=== PATIENT | male | born 1990 | race Caucasian/White ===

== ENCOUNTER 2022-09-21 18:35 | Emergency (ER) | payer SELFPAY ==
[2022-09-21 18:58] LABS: Absolute Lymphocytes (CBC) 1.5 K/uL (0.7-4.9); Hematocrit 44.5 % (39.6-49.0); Lymphocytes % 14.9 % (15.3-44.8); MCV 88.8 fL (80-100); MPV 8.1 fL (7.6-11.3); RBC Red Blood Cell Count 5.02 M/uL (4.33-5.43)
[2022-09-21 19:02] LABS: Protime INR 1.05
[2022-09-21] MEDS ORDERED: ZIPRASIDONE MESYLA 20 MG/VIAL IM ONE (19:04)
[2022-09-21] MEDS ORDERED: WATER FOR INJ,STERILE 10 ML ONE (19:06)
[2022-09-21 19:11] LABS: Specific Gravity < 1.005 (1.005-1.030); Urine Bilirubin NEGATIVE (Negative); Urine Blood Negative (Negative); Urine Clarity Clear (Clear); Urine Color Colorless (Yellow); Urine Glucose NEGATIVE (Negative); Urine Protein NEGATIVE (Negative); Urine Urobilinogen Normal (Normal); Urine pH 5.5 (5.0-7.0)
[2022-09-21] MEDS ORDERED: NICOTINE 21 MG/PAT TD ONE (19:19)
[2022-09-21 19:20] LABS: ALT/SGPT 20 U/L (16-61); AST/SGOT 18 U/L (15-37); Albumin 4.4 g/dL (3.4-5.0); Alkaline Phosphatase 80 U/L (45-117); BUN Blood Urea Nitrogen 12 mg/dL (7-18); Bicarbonate 26 mEq/L (21-32); Bilirubin Direct 0.1 mg/dL (0-0.2); Bilirubin Total 0.5 mg/dL (0.2-1.0); Glomerular Filtration Rate 115 ml/min (=/>90); Glucose Level 112 mg/dL (74-106); Potassium 3.5 mEq/L (3.5-5.1); Protein, Total 7.8 g/dL (6.4-8.2); Sodium Level 142 mEq/L (136-145)
[2022-09-21 19:21] LABS: Barbiturates NEGATIVE (NEGATIVE); Benzodiazepines NEGATIVE (NEGATIVE); Cocaine NEGATIVE (NEGATIVE); METHAMPHETAM NEGATIVE (NEGATIVE); Methadone NEGATIVE (NEGATIVE); Opiates NEGATIVE (NEGATIVE); Phencyclidine NEGATIVE (NEGATIVE); THC Cannibis POSITIVE (NEGATIVE)
[2022-09-21] MEDS ORDERED: THIAMINE 200 MG/2 ML INJ ONE (21:16)
[2022-09-21] MEDS ORDERED: NA CHLORIDE 0.9% 1,000 ML ONE (21:16)
[2022-09-21] MEDS ORDERED: MULTIVITAMINS 10 ML VIAL (INJ) IV ONE (21:16)
[2022-09-21] MEDS ORDERED: FOLIC ACID 5 MG/ML VIAL ONE (21:17)
--- NOTE | 2022-09-21 22:56 | ER ---
Nurse's Notes Formerly [facility] Name: Willy Tam Age: 32 yrs Sex: Male : 1990 Arrival Date: 09/21/2022 Time: 18:35 Bed 17 Private MD: Diagnosis: Alcohol abuse with intoxication;Cannabis abuse, uncomplicated;Acute alcohol intoxication, anxiety attack, cannabis abuse, emotional upset Presentation: 09/21 18:43 Chief complaint: law enforcement [place] into a kc6 verbal altercation with another individual regarding his dog. pt started to drive recklessly when he was pulled over by [place] police stating he wanted to kill himself and blow his brains out. Coronavirus screen: Vaccine status: Patient reports receiving the 2nd dose of the covid vaccine. At this time, the client does not indicate any symptoms associated with coronavirus-19. Ebola Screen: No symptoms or risks identified at this time. Initial Sepsis Screen: Does the patient meet any 2 criteria? No. Patient's initial sepsis screen is negative. Does the patient have a suspected source of infection? No. Patient's initial sepsis screen is negative. Risk Assessment: Do you want to hurt yourself or someone else? Patient reports desire/thoughts of hurting themselves or someone else. Provider notified. Onset of symptoms was September 21, 2022. 18:43 Method Of Arrival: EMS: [facility] 6 18:43 Acuity: SHAWNA 2 kc6 Triage Assessment: 18:45 General: Appears in no apparent distress. comfortable, Behavior is cooperative, kc6 appropriate for age, agitated. Pain: Denies pain. EENT: No signs and/or symptoms were reported regarding the EENT system. Neuro: Ramirez Agitation-Sedation Scale (RASS): 0 - Alert and Calm Level of Consciousness is awake, alert, obeys commands, Oriented to person, place, time, situation, Appropriate for age. Cardiovascular: Capillary refill < 3 seconds. Respiratory: Airway is patent Trachea midline Respiratory effort is even, unlabored, Respiratory pattern is regular, symmetrical. GI: No signs and/or symptoms were reported involving the gastrointestinal system. : No signs and/or symptoms were reported regarding the genitourinary system. Derm: No signs and/or symptoms reported regarding the dermatologic system. Skin is intact, Skin is pink, warm \\T\\ dry. Musculoskeletal: No signs and/or symptoms reported regarding the musculoskeletal system. Circulation, motion, and sensation intact. Capillary refill < 3 seconds, Range of motion: intact in all extremities. Historical: - Allergies: 18:45 No Known Allergies; kc6 - Home Meds: 18:45 None [Active]; kc6 - PMHx: 18:45 ptsd; kc6 - PSHx: 18:45 None; kc6 - Immunization history:: Client reports receiving the 2nd dose of the Covid vaccine, Flu vaccine is up to date. - Social history:: Smoking status: Reported history of juuling and/or vaping. Screenin:47 [facility] ED Fall Risk Assessment (Adult) History of falling in the last 3 months, kc6 including since admission No falls in past 3 months (0 pts) Confusion or Disorientation No (0 pts) Intoxicated or Sedated No (0 pts) Impaired Gait No (0 pts) Mobility Assist Device Used No (0 pt) Altered Elimination No (0 pt) Score/Fall Risk Level 0 - 2 = Low Risk Oriented to surroundings, Maintained a safe environment, Educated pt \\T\\ family on fall prevention, incl call for assistance when getting out of bed, Assessed \\T\\ reinforced patient's understanding of fall precautions, Hourly rounding (assess needs \\T\\ fall precautionary measures) done. Abuse screen: Denies threats or abuse. Denies injuries from another. Nutritional screening: No deficits noted. Tuberculosis screening: No symptoms or risk factors identified. Assessment: 18:47 Reassessment: please see triage assessment. [facility] 18:53 Reassessment: pt appears to be yelling and screaming at staff. pt appears to be kc6 standing up and thrashing around. code isaac called. security and charge at bedside. [place] [employer] contacted. 19:20 General: Appears in no apparent distress. Behavior is agitated, anxious, fussy, lg3 uncooperative. 19:20 Pain: Denies pain. Neuro: Ramirez Agitation-Sedation Scale (RASS): +3 Very Agitated lg3 Level of Consciousness is awake, alert, Oriented to person, place, time, situation. Cardiovascular: No deficits noted. Capillary refill < 3 seconds Clubbing of nail beds is absent JVD is absent Patient's skin is warm and dry. Respiratory: No deficits noted. Airway is patent Respiratory effort is even, unlabored, Respiratory pattern is regular, symmetrical. GI: No deficits noted. No signs and/or symptoms were reported involving the gastrointestinal system. Abdomen is flat, non-distended. : No deficits noted. No signs and/or symptoms were reported regarding the genitourinary system. EENT: No deficits noted. No signs and/or symptoms were reported regarding the EENT system. Derm: No deficits noted. No signs and/or symptoms reported regarding the dermatologic system. Skin is intact, is healthy with good turgor, Skin is dry, Skin is normal, Skin temperature is warm. Musculoskeletal: No deficits noted. No signs and/or symptoms reported regarding the musculoskeletal system. Circulation, motion, and sensation intact. Range of motion: intact in all extremities. 21:53 General: Appears in no apparent distress. Behavior is agitated, anxious, fussy. Pain: lg3 Denies pain. Neuro: Ramirez Agitation-Sedation Scale (RASS): +2 Agitated. Cardiovascular: No deficits noted. Respiratory: No deficits noted. Airway is patent Respiratory effort is even, unlabored, Respiratory pattern is regular, symmetrical. 05/01 01:41 General: Appears in no apparent distress. Behavior is calm, cooperative. Pain: Denies lg3 pain. Neuro: No deficits noted. Ramirez Agitation-Sedation Scale (RASS): 0 - Alert and Calm Level of Consciousness is awake, alert, obeys commands, Oriented to person, place, situation. Cardiovascular: No deficits noted. Respiratory: No deficits noted. Airway is patent Respiratory effort is even, unlabored, Respiratory pattern is regular, symmetrical. 01:42 General: pt quietly resting at this time . lg3 03:30 General: Appears in no apparent distress. comfortable, Behavior is calm, cooperative. lg3 Pain: Denies pain. Neuro: No deficits noted. Ramirez Agitation-Sedation Scale (RASS): 0 - Alert and Calm Level of Consciousness is awake, alert, obeys commands, Oriented to person, place, time, situation. Cardiovascular: No deficits noted. Respiratory: No deficits noted. Airway is patent Respiratory effort is even, unlabored, Respiratory pattern is regular, symmetrical. GI: No deficits noted. No signs and/or symptoms were reported involving the gastrointestinal system. : No deficits noted. No signs and/or symptoms were reported regarding the genitourinary system. EENT: No deficits noted. No signs and/or symptoms were reported regarding the EENT system. Derm: No deficits noted. No signs and/or symptoms reported regarding the dermatologic system. Skin is intact, is healthy with good turgor, Skin is dry, Skin is normal, Skin temperature is warm. Musculoskeletal: No deficits noted. No signs and/or symptoms reported regarding the musculoskeletal system. Circulation, motion, and sensation intact. Range of motion: intact in all extremities. 04:21 General: [facility] clinical technologist at bedside. lg3 06:41 General: Appears in no apparent distress. comfortable, Behavior is calm, cooperative. lg3 General: pt denies any SI/HI ideations at this time. pt states he "was intoxicated, mad and said stupid things". Pain: Denies pain. Neuro: No deficits noted. Ramirez Agitation-Sedation Scale (RASS): 0 - Alert and Calm Level of Consciousness is awake, alert, obeys commands, Oriented to person, place, time, situation. Psych: 09/21 18:48 [place] Suicide Severity Screening: In the past month, have you wished you were kc6 or wished you could go to sleep and not wake up? Patient responds "yes." "In the past month, have you actually had any thoughts of killing yourself?" Patient responds "yes." "In your lifetime, have you ever done anything, started to do anything, or prepared to do anything to end your life?" Patient responds "yes." Patient reports suicidal intent within 3 past months. Subjective: Patient's mood is irritable, Delusions are denied, Hallucinations are denied Having thoughts of suicide. Objective: Patient is cooperative, Speech is normal, Affect is appropriate. Interventions: Removed personal items and placed in bag. Patient placed in hospital gown. Searched person for dangerous items. Urine collected and sent for urine drug test. Belonging list filled out. Safety Checks: Personal items have been removed. Door is open. No visitors are present at this time. Patient uses Patient uses marijuana. Commitment: Patient will be an involuntary commitment. Vital Signs: 18:43 BP 119 / 81; Pulse 74; Resp 18 S; Pulse Ox 98% on R/A; Weight 54.43 kg (R); Height 5 kc6 ft. 7 in. (R); Pain 0/10; 05 02:01 BP 106 / 67; Pulse 75; Resp 20; Pulse Ox 100% on R/A; oe 06:45 BP 114 / 68; Pulse 71; Resp 19 S; Pulse Ox 100% on R/A; lg3 09/21 18:43 Body Mass Index 18.79 (54.43 kg, 170.18 cm) kc6 09/21 18:43 Pain Scale: Adult [facility] ED Course: 09/21 18:38 Patient arrived in ED. aa5 18:38 Donavan Sanders PA is PHCP. cp 18:38 Rayo Portillo MD is Attending Physician. cp 18:42 Inserted saline lock: 20 gauge in left forearm, using aseptic technique. Blood zm collected. 18:43 Kristy Guadalupe, ALEXUS is Primary Nurse. [facility] 18:45 Triage completed. [facility] 18:45 Arm band placed on. kc6 18:47 Patient has correct armband on for positive identification. Placed in gown. Bed in low kc6 position. Adult w/ patient. Valuables inventory done. Locked in safe. See valuables checklist. Security at bedside. 18:56 Police [place] police department called/ they will send officers over. eb 18:58 Acetaminophen Sent. zm 18:58 Basic Metabolic Panel Sent. zm 18:58 CBC with Diff Sent. zm 18:59 ETOH Level Sent. zm 18:59 Hepatic Function Sent. zm 18:59 PT-INR Sent. zm 18:59 Ptt, Activated Sent. zm 18:59 Salicylate Sent. zm 18:59 Urinalysis w/ reflexes Sent. zm 18:59 Urine Drug Screen Sent. zm 19:14 Tong Cesar MD is Attending Physician. cp 19:20 Safety Checks: Personal items have been removed. The door is open or patient has been lg3 placed in a hallway bed/chair. There are no family/friend visitors at this time Sitter present at this time. 19:20 Door closed. Noise minimized. Warm blanket given. lg3 09/22 01:08 Pt clinicals faxed to the following facilities for placement; [facility]. [facility], [facility], [facility], [facility], [facility], [facility], [facility]. 02:08 ETOH Level Sent. lg3 06:46 No provider procedures requiring assistance completed. IV discontinued, intact, lg3 bleeding controlled, No redness/swelling at site. Pressure dressing applied. Administered Medications: 09/21 19:05 Drug: Geodon IM 20 mg Route: IM; Site: right deltoid; 09/22 04:32 Follow up: Response: No adverse reaction; Marked relief of symptoms; RASS: Drowsy (-1) [facility] 09/21 19:22 Drug: Nicoderm CQ Transdermal Patch 21 mg/24 hr 21 mg Route: Transdermal; Site: lg3 affected area; 09/22 04:32 Follow up: Response: No adverse reaction; Marked relief of symptoms [facility] 09/21 21:18 Drug: Banana Bag - (NS 0.9% IV 1000 ml, foLIC Acid IVPB 1 mg, Thiamine IV 100 mg, nj1 Multivitamin IV 1 amp) Route: IV; Rate: 150 ml/hr; Site: left antecubital; 09/22 04:32 Follow up: Response: No adverse reaction; IV Status: Completed infusion; IV Intake: lg3 1000ml Medication: 06:46 VIS not applicable for this client. lg3 Intake: 04:32 IV: 1000ml; Total: 1000ml. lg3 Outcome: 09/21 22:55 ER care complete, transfer ordered by . 09/22 06:29 Discharge ordered by . sp4 06:46 Discharged to home ambulatory. lg3 06:46 Condition: stable 06:46 Discharge instructions given to patient, Instructed on discharge instructions, follow up and referral plans. safety practices, Demonstrated understanding of instructions, follow-up care. 06:46 Patient left the ED. lg3 Signatures: Nicky Marcos RN Caridad Sullivan, RN RN aa5 Donavan Sanders PA PA Vishal Chaidez Elizabeth eb Gibson, Lacie RN RN lg3 Isabel Schmidt Kaitlyn, RN RN daniel6 Nichol Crawford1 Tong Cesar MD MD sp4 Paty Ray RN RN nj1
--- NOTE | 2022-09-21 22:56 | EDPHYS ---
Physician Documentation [facility] Name: Willy Tam Age: 32 yrs Sex: Male : 1990 Arrival Date: 09/21/2022 Time: 18:35 Bed 17 Private MD: ED Physician Tong Cesar HPI: 09/21 18:50 This 32 yrs old Male presents to ER via EMS with complaints of Suicidal Ideation. cp 18:50 The patient presents to the emergency department with suicidal threats. Onset: The cp symptoms/episode began/occurred today. 18:50 Associated signs and symptoms: Pertinent positives; alcohol use, Pertinent negatives: cp abdominal pain, chest pain, delusions, fever, hallucinations, headache, paranoia. 09/22 03:05 Patient care assumed from the PA at 0 0300. cp Historical: - Allergies: 09/21 18:45 No Known Allergies; kc6 - Home Meds: 18:45 None [Active]; kc6 - PMHx: 18:45 ptsd; kc6 - PSHx: 18:45 None; kc6 - Immunization history:: Client reports receiving the 2nd dose of the Covid vaccine, Flu vaccine is up to date. - Social history:: Smoking status: Reported history of juuling and/or vaping. ROS: 19:00 Constitutional: Negative for body aches, chills, fever, poor PO intake. cp 19:00 Cardiovascular: Negative for chest pain, edema, palpitations. cp 19:00 Eyes: Negative for injury, pain, redness, and discharge. cp 19:00 Abdomen/GI: Negative for abdominal pain, nausea, vomiting, and diarrhea. 19:00 Neuro: Negative for altered mental status. 19:00 Psych: Positive for suicidal ideation, alcohol use, Negative for auditory hallucinations, visual hallucinations, homicidal ideation, suicide gesture. 19:00 All other systems are negative. Exam: 19:05 Constitutional: The patient appears in no acute distress, alert, awake, non-toxic, well cp developed, well nourished, agitated 19:05 Head/Face: Normocephalic, atraumatic. cp 19:05 Eyes: Pupils: equal, round, and reactive to light and accomodation, Conjunctiva: normal, no exudate, no injection, Sclera: no appreciated abnormality, Lids and lashes: appear normal, bilaterally. 19:05 ENT: External ear(s): are unremarkable, Nose: is normal, Mouth: Lips: moist, Oral mucosa: pink and intact, moist, Posterior pharynx: is normal, airway is patent, no erythema, no exudate. 19:05 Chest/axilla: Inspection: normal, Palpation: is normal, no crepitus, no tenderness. 19:05 Cardiovascular: Rate: normal, Rhythm: regular, Edema: is not appreciated, JVD: is not appreciated. 19:05 Respiratory: the patient does not display signs of respiratory distress, Respirations: normal, no use of accessory muscles, no retractions, labored breathing, is not present, Breath sounds: are clear throughout, no decreased breath sounds, no stridor, no wheezing. 19:05 Abdomen/GI: Inspection: abdomen appears normal, Palpation: abdomen is soft and cp non-tender, in all quadrants. 19:05 Back: pain, is absent, ROM is normal. 19:05 Skin: no rash present. 19:05 Neuro: Orientation: to person, place \T\ time. Mentation: able to follow commands, Motor: moves all fours, strength is normal. 19:05 Musculoskeletal/extremity: Exam is negative for decreased range of motion, deformity, cp injury. 19:20 ECG was reviewed by the Attending Physician. 21:55 ECG was reviewed by the Attending Physician. Vital Signs: 18:43 BP 119 / 81; Pulse 74; Resp 18 S; Pulse Ox 98% on R/A; Weight 54.43 kg (R); Height 5 kc6 ft. 7 in. (R); Pain 0/10; 09/22 02:01 BP 106 / 67; Pulse 75; Resp 20; Pulse Ox 100% on R/A; oe 06:45 BP 114 / 68; Pulse 71; Resp 19 S; Pulse Ox 100% on R/A; lg3 09/21 18:43 Body Mass Index 18.79 (54.43 kg, 170.18 cm) [facility] 09/21 18:43 Pain Scale: Adult [facility] MDM: 09/21 18:40 Patient medically screened. 21:00 Data reviewed: vital signs, nurses notes, lab test result(s), EKG. 09/22 06:26 Differential diagnosis: drug withdrawal. acute psychotic break, depression, psychosis sp4 secondary to non-compliance. ED course: On repeat assessment patient states that he is not danger to himself or others, no hallucinations or delusions, patient states he reported suicidal ideation to police because he was intoxicated and upset. At this time patient repeats he is not danger to himself or anybody else. . 09/21 18:39 Order name: Acetaminophen; Complete Time: 20:18 09/21 20:18 Interpretation: Reviewed. 09/21 18:39 Order name: Basic Metabolic Panel; Complete Time: 20:18 cp 09/21 20:18 Interpretation: Normal except: CL 112; GLUC 112. cp 09/21 18:39 Order name: CBC with Diff; Complete Time: 20:18 09/21 20:18 Interpretation: Normal except: SETH% 79.8; LYM% 14.9. 09/21 18:39 Order name: ETOH Level; Complete Time: 20:18 09/21 20:18 Interpretation: Abnormal: ETOH 238. 09/21 18:39 Order name: Hepatic Function; Complete Time: 20:18 cp 09/21 18:39 Order name: PT-INR; Complete Time: 20:18 cp 09/21 18:39 Order name: Ptt, Activated; Complete Time: 20:18 09/21 18:39 Order name: Salicylate; Complete Time: 20:18 cp 09/21 20:19 Interpretation: Reviewed. 09/21 18:39 Order name: Urinalysis w/ reflexes; Complete Time: 20:18 cp 09/21 18:39 Order name: Urine Drug Screen; Complete Time: 20:18 09/21 20:18 Interpretation: Normal except: THC POSITIVE. cp 09/22 01:33 Order name: ETOH Level; Complete Time: 04:52 cp 09/21 18:39 Order name: EKG; Complete Time: 18:40 cp 09/21 18:39 Order name: EKG - Nurse/Tech; Complete Time: 19:22 cp 09/21 18:39 Order name: IV Saline Lock; Complete Time: 18:49 09/21 18:39 Order name: Labs collected and sent; Complete Time: 18:49 cp 09/21 18:39 Order name: Suicide Precautions; Complete Time: 18:49 cp 09/21 18:39 Order name: Suicide Screening ([place]); Complete Time: 18:49 cp 09/21 20:20 Order name: EKG - Nurse/Tech: repeat; Complete Time: 21:51 cp EC/30 19:20 Rate is 98 beats/min. Rhythm is regular. OR interval is normal. QRS interval is cp prolonged at 112 msec. QT interval is normal. Interpreted by me. Reviewed by me. 21:55 Rate is 87 beats/min. Rhythm is regular. OR interval is normal. QRS interval is cp prolonged at 112 msec. QT interval is normal. T waves are Inverted in leads aVL, aVR. Interpreted by me. Reviewed by me. Administered Medications: 19:05 Drug: Geodon IM 20 mg Route: IM; Site: right deltoid; 09/22 04:32 Follow up: Response: No adverse reaction; Marked relief of symptoms; RASS: Drowsy (-1) [facility] 09/21 19:22 Drug: Nicoderm CQ Transdermal Patch 21 mg/24 hr 21 mg Route: Transdermal; Site: lg3 affected area; 09/22 04:32 Follow up: Response: No adverse reaction; Marked relief of symptoms [facility] 09/21 21:18 Drug: Banana Bag - (NS 0.9% IV 1000 ml, foLIC Acid IVPB 1 mg, Thiamine IV 100 mg, nj1 Multivitamin IV 1 amp) Route: IV; Rate: 150 ml/hr; Site: left antecubital; 09/22 04:32 Follow up: Response: No adverse reaction; IV Status: Completed infusion; IV Intake: lg3 1000ml Disposition: 06:27 Co-signature as Attending Physician, Tong Cesar MD I agree with the assessment sp4 and plan of care. I reviewed the patient's care provided by Advanced Practice Provider \T\ agree w/ the diagnosis \T\ care plan. I personally saw the pt \T\ performed a substantive portion of the visit, incldng all aspects of the (History/Exam/Medical Decision Making). Disposition Summary: 09/22/22 06:29 Discharge Ordered Location: Home sp4 Problem: new(09/22/22 06:29) sp4 Symptoms: have improved(09/22/22 06:29) sp4 Condition: Stable(09/22/22 06:29) sp4 Diagnosis - Alcohol abuse with intoxication sp4 - Cannabis abuse, uncomplicated(09/22/22 06:29) sp4 - Acute alcohol intoxication, anxiety attack, cannabis abuse, emotional upset sp4 Followup: sp4 - With: Private Physician - When: As needed - Reason: Discharge Instructions: - Discharge Summary Sheet sp4 - Substance Use Disorder sp4 Signatures: Dispatcher [employer] EDMS Nicky Marcos RN RN Donavan Marte PA PA cp Tammie Vega RN RN lg3 Kristy Guadalupe RN RN kc6 Tong Cesar MD MD sp4 Paty Ray RN RN nj1 Corrections: (The following items were deleted from the chart) 06:27 09/21 22:55 Doctor cp sp4 09/22 06:09/21 22:55 Suicidal ideations cp sp4 09/22 06:09/21 22:55 Psych Facility cp sp4 09/22 06:09/21 22:55 Higher level of care cp sp4 / 06:09/21 22:55 Stable cp sp4 / 06:09/21 22:55 new cp sp4 / 06:09/21 22:55 have improved cp sp4 / 06:28 09/21 22:55 Alcohol use, unspecified with intoxication cp sp4 09/22 06:28 06:27 Doctor sp4 sp4 06: 06:27 Cannabis abuse, uncomplicated sp4 sp4 06: 06:27 Acute alcohol intoxication, emotional upset, acute anxiety sp4 sp4 09/23 00:39 05 06:21 Patient care assumed from the PA at 0 621. sp4 cp
[2022-09-22 07:04] VITALS: O2SAT 100
[2022-09-22 07:05] VITALS: BP 114/68
--- NOTE | 2022-09-22 12:38 | EKG ---
Test Date: 2022-09-21 Test Time: 21:45:20 [employer] Executive Producer: LL MEASUREMENT RESULTS: Intervals: Rate: 81 WA: 152 QRSD: 102 QT: 364 QTc: 422 [place]: P: 92 WA: 152 QRS: 95 T: 85 INTERPRETIVE STATEMENTS: Suspect arm lead reversal, interpretation assumes no reversal Normal sinus rhythm Rightward axis Moderate voltage criteria for LVH, may be normal variant Borderline ECG Compared to ECG 09/21/2022 19:15:41 Right-axis deviation now present Left ventricular hypertrophy now present ST (T wave) deviation no longer present Electronically Signed On 09-22-22 12:37:06 CDT by Oscar Ellis
--- NOTE | 2022-09-22 12:38 | EKG ---
Test Date: 2022-09-21 Test Time: 21:47:03 Secure Software Assessor: LL MEASUREMENT RESULTS: Intervals: Rate: 87 CT: 142 QRSD: 112 QT: 370 QTc: 445 [place]: P: 79 CT: 142 QRS: 92 T: 77 INTERPRETIVE STATEMENTS: Normal sinus rhythm Rightward axis Minimal voltage criteria for LVH, may be normal variant Borderline ECG Compared to ECG 09/21/2022 21:45:20 No significant changes Electronically Signed On 09-22-22 12:37:05 CDT by Oscar Ellis
--- NOTE | 2022-09-22 12:39 | EKG ---
Test Date: 2022-09-21 Test Time: 19:15:41 [employer]: JOAQUIN MEASUREMENT RESULTS: Intervals: Rate: 104 NH: 136 QRSD: 104 QT: 332 QTc: 436 [place]: P: 76 NH: 136 QRS: 88 T: 94 INTERPRETIVE STATEMENTS: Undetermined rhythm Nonspecific ST abnormality Abnormal ECG No previous ECG available for comparison Electronically Signed On 09-22-22 12:37:09 CDT by Oscar Ellis
== END 2022-09-22 06:46 | disposition home or self-care (01) ==
LOC: ER 18:35
DX: F10.129 Alcohol abuse with intoxication, unspecified (principal); F12.10 Cannabis abuse, uncomplicated; F41.9 Anxiety disorder, unspecified
CPT/HCPCS: 36415; 80048; 80076; 80307; 81003; 85025; 85610; 85730; 93005; 96365; 96366; 96372; 99285; G0480; J3411; J3486; J7030